=== PATIENT | male | born 1970 | race Hispanic/Latino ===

== ENCOUNTER 2020-05-06 01:00 | Emergency (ER) | payer SELFPAY ==
[2020-05-06] MEDS ORDERED: Nitroglycerin 0.4 MG TAB 1 EACH ONE (01:21)
[2020-05-06] MEDS ORDERED: Ketorolac Tromethamine 30 MG/ML VIAL ONE (01:21)
[2020-05-06] MEDS ORDERED: Aspirin Chewable 81 MG TAB ONE (01:21)
--- NOTE | 2020-05-06 07:49 | RAD ---
EXAM: CHEST ONE VIEW HISTORY: Chest pain COMPARISON: None FINDINGS: The cardiac silhouette and pulmonary vasculature are within normal limits. The lungs are clear. The o sseous structures are intact. IMPRESSION: No acute cardiopulmonary process.
== END 2020-05-06 04:42 | disposition home or self-care (01) ==
LOC: MADERS 01:00
DX: Z53.21 Procedure and treatment not carried out due to patient leaving prior to being seen by health care provider (principal)
CPT/HCPCS: 71045; J1885

== ENCOUNTER 2020-09-22 16:26 | Emergency (ER) | payer SELFPAY | END 2020-09-22 17:31 | disposition home or self-care (01) | LOC: MADERS 16:26 | DX: M77.12 Lateral epicondylitis, left elbow (principal) | CPT/HCPCS: 99283 ==

== ENCOUNTER 2024-04-21 09:43 | Emergency (ER) | payer SELFPAY ==
[2024-04-21] MEDS ORDERED: Boostrix 0.5 ML (Tdap) VIAL (>/=7 yrs of age) ONE (09:57)
[2024-04-21] MEDS ORDERED: Lidocaine 1% (PF) 30 ML VIAL ONE (09:57)
== END 2024-04-21 11:05 | disposition home or self-care (01) ==
LOC: MADERS 09:43
DX: S52.122A Displaced fracture of head of left radius, initial encounter for closed fracture (principal); F17.210 Nicotine dependence, cigarettes, uncomplicated; V80.010A Animal-rider injured by fall from or being thrown from horse in noncollision accident, initial encounter
CPT/HCPCS: 12004; 90715; 99283; J2001

== ENCOUNTER 2024-04-30 16:02 | Emergency (ER) | payer SELFPAY ==
[2024-04-30] MEDS ORDERED: Bacitracin 1 PK ONE (16:19)
== END 2024-04-30 16:25 | disposition home or self-care (01) ==
LOC: MADERS 16:02
DX: S51.012D Laceration without foreign body of left elbow, subsequent encounter (principal); F17.210 Nicotine dependence, cigarettes, uncomplicated; W19.XXXD Unspecified fall, subsequent encounter

== ENCOUNTER 2025-04-20 17:13 | Emergency (ER) | payer SELFPAY | END 2025-04-20 18:13 | disposition home or self-care (01) | LOC: MADERS 17:13 | DX: S39.012A Strain of muscle, fascia and tendon of lower back, initial encounter (principal); F10.10 Alcohol abuse, uncomplicated; F17.210 Nicotine dependence, cigarettes, uncomplicated; Z55.6 Problems related to health literacy; X50.0XXA Overexertion from strenuous movement or load, initial encounter; Y93.89 Activity, other specified | CPT/HCPCS: 99283 ==

== ENCOUNTER 2025-04-28 15:57 | Outpatient (CLI) | payer OTHER, SELFPAY | END 2025-04-28 15:58 | disposition home or self-care (01) | LOC: MADRAD 15:57 | DX: M54.50 Low back pain, unspecified (principal); M47.816 Spondylosis without myelopathy or radiculopathy, lumbar region | CPT/HCPCS: 72100 ==